=== PATIENT | female | born 1995 ===

== ENCOUNTER 2017-09-27 15:13 | Emergency (ER) | payer OTHER ==
[2017-09-27 15:47] VITALS: TEMP 99
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
[2017-09-27 17:03] VITALS: BP 112/63; PULSE 70; RESP 16
[2017-09-27 17:13] VITALS: O2SAT 98
== END 2017-09-27 17:05 | disposition home or self-care (01) ==
LOC: C.ER 15:13
DX: S09.90XA Unspecified injury of head, initial encounter (principal); V23.4XXA Motorcycle driver injured in collision with car, pick-up truck or van in traffic accident, initial encounter